=== PATIENT | female | born 1985 | race Caucasian/White ===

== ENCOUNTER 2020-09-16 18:48 | Emergency (ER) | payer OTHER ==
[~2020-09-16 18:48] MED LIST: MOBIC15 MG PO; NORCO 7.5-3251 EACH PO
[2020-09-16 19:45] LABS: HEMOGLOBIN 14.9 gm/dl (12.3-15.3); RED BLOOD COUNT 4.67 M/UL (4.00-5.10); WHITE BLOOD COUNT 11.4 K/UL (4.5-11.0)
[2020-09-16 20:06] LABS: BUN/CREATININE RATIO 11 (0-10)
== END 2020-09-16 22:59 | disposition home or self-care (01) ==
LOC: ER1 18:48
PROVIDERS: Family Medicine
DX: R07.9 Chest pain, unspecified (principal); I10 Essential (primary) hypertension; F17.200 Nicotine dependence, unspecified, uncomplicated
CPT/HCPCS: 71046; 80053; 82550; 82553; 83874; 84484; 84703; 85025; 85379; 85610; 93005; 99285